=== PATIENT | female | born 1980 | race Caucasian/White ===

== ENCOUNTER 2017-09-26 21:14 | Observation (INO) ==
[2017-09-26] MEDS ORDERED: Ipratropium/Albuterol Neb 3 ML IH ONE (21:39)
--- NOTE | 2017-09-26 21:42 | Emergency Department Note ---
Disposition Clinical Impression: Acute exacerbation of chronic obstructive airways disease Disposition: Admitted As Inpatient Condition: Good Time of Disposition: 23:00 ([facility]) SOB HPI - General Chief Complaint: ED Shortness of Breath/Dyspnea Stated Complaint: short of breath Time Seen by Provider: 09/26/17 21:20 Source: patient Mode of arrival: ambulatory Limitations: no limitations Nursing Notes Reviewed: Yes Vital Signs Reviewed: Yes - History of Present Illness Patient is very been on steroids and antibiotics and she is on her second round of antibiotics here just within the past month is having increasing shortness of breath with activity wheezing and having no relief she does have a history of pulmonary emboli but this is not been worked up recently she denies any chest pain or chest pressure she is having shortness of breath with activity short of breath with rest she is not getting much relief from the use of her aerosol machine at home she denies blurred vision double vision loss vision and she is currently on 20 mg of prednisone a day after she had received a shot of Solu-Medrol 125 mg with no relief Pt Subjective Complaint: shortness of breath, "asthma attack" 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 Context: recent illness Severity: severe Consistency/Duration: constant Improves with: oxygen, bronchodilators Worsens with: nothing Known history of: COPD, asthma, PE Associated symptoms: Reports: cough, wheezing, sputum production Treatment prior to arrival: bronchodilator Cough present: No Sputum production: No - Related Data Home Medications Medication Instructions Recorded Confirmed Albuterol Sulfate [Albuterol 8.5 gm IH Q4H PRN 05/17/17 09/26/17 Inhaler] Budesonide/Formoterol 160/4.5 2 puff IH BIDR 05/17/17 09/26/17 [Symbicort 160/4.5] Cetirizine HCl [Zyrtec] 10 mg PO DAILY 05/17/17 09/26/17 Buprenorphine HCl/Naloxone HCl 1 each SL DAILY 09/26/17 09/26/17 [Suboxone 8 mg-2 mg Sl Film] Ciprofloxacin HCl [Cipro] 500 mg PO BID 09/26/17 09/26/17 Clindamycin [Cleocin] 150 mg PO Q6HR 09/26/17 09/26/17 Gabapentin [Neurontin] 800 mg PO BID 09/26/17 09/26/17 Tiotropium [Spiriva] 18 mcg IH DAILY 09/26/17 09/26/17 Previous Rx's Medication Instructions Recorded EPINEPHrine [Epipen] 0.3 mg IM ONCE PRN #1 kit 03/09/17 Allergies Allergy/AdvReac Type Severity Reaction Status Date / Time tramadol [From Ultram] AdvReac Seizure Verified 09/27/17 07:31 bee sting Allergy Swelling Uncoded 05/29/17 16:23 of Lip/Tongue/Throat All systems ED: reviewed and negative except as stated. Review of Systems: As Per HPI Constitutional: Denies: fever, chills Eyes: Denies: eye pain ENT ED: Denies: ear pain Cardiovascular: Reports: chest pain Respiratory: Reports: cough, dyspnea, wheezes Gastrointestinal: Denies: abdominal pain Genitourinary: Denies: urgency Musculoskeletal: Denies: back pain Integumentary: Denies: rash Neurological: Denies: headache Psychiatric: Denies: anxiety Endocrine: Denies: fatigue Hematological/Lymphatic: Denies: easy bleeding Allergic/Immunologic: Denies: facial swelling Past Medical History - Past Medical History Attestation: Yes The following information was validated with the patient. 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 history: Reports: bilateral tubal ligation - Social History Smoking Status: Current every day smoker Smokeless Tobacco Status: Yes Alcohol use: Reports: occasionally Drug use: Reports: none Physical Exam - General Limitations: no limitations General appearance: alert, in no apparent distress, anxious - Head Head exam: atraumatic, normocephalic, normal inspection - Eye Eye exam: Present: normal appearance, PERRL, EOMI - ENT ENT exam: normal exam, normal oropharynx, mucous membranes moist - Neck Neck exam: Present: normal inspection, full ROM, trachea midline - Chest Chest inspection: Present: normal inspection, symmetric chest wall rise - Respiratory Respiratory exam: Present: wheezes, accessory muscle use, prolonged expiratory phase - Cardiovascular Cardiovascular exam: Present: regular rate, normal rhythm, normal heart sounds - Abdominal Exam Abdominal exam: Present: soft, Non-Tender, normal bowel sounds - Extremities Exam Extremities exam: Present: normal inspection, full ROM, normal capillary refill. Absent: tenderness, pedal edema, joint swelling, calf tenderness - Expanded Lower Extremity Exam Neurovascular/Tendon exam: Present: normal capillary refill, normal fine/light touch Gait: observed and normal - Back Exam Back exam: Present: normal inspection, full ROM. Absent: muscle spasm - Neurological Exam Neurological exam: Present: alert, oriented X3, CN II-XII intact - Psychiatric Psychiatric exam: Present: normal affect, normal mood - Skin Skin exam: Present: warm, dry, intact, normal color Course Course Narrative: Patient seen and examined breathing treatments with little relief patient was given Solu-Medrol antibiotics after PE study she was admitted for observation transferred to [facility] Vital Signs Temperature 97.4 F L 09/26/17 21:18 Pulse Rate 91 09/26/17 21:18 Respiratory Rate 18 09/26/17 21:18 Blood Pressure 137/88 09/26/17 21:18 O2 Sat by Pulse Oximetry 96 09/26/17 21:18 Temperature 98.4 F 09/27/17 06:46 Pulse Rate 90 09/27/17 06:46 Respiratory Rate 16 09/27/17 06:46 Blood Pressure 117/72 09/27/17 06:46 O2 Sat by Pulse Oximetry 93 09/27/17 06:46 Oxygen Delivery Oxygen Delivery Room Air Shortness of Breath/Dyspnea - Differential Diagnosis Likely: acute exacerbation of chronic obstructive airways disease - Medical Records Medical records reviewed: Yes I reviewed the patient's medical records. - Lab Data Lab results reviewed: Yes I reviewed the patient's lab results. Result diagrams: 09/27/17 04:38 09/27/17 04:38 Lab Results 09/26/17 09/26/17 09/26/17 Range/Units 21:53 21:53 21:53 WBC 4.4 (4.3-11.1) K/mcL RBC 4.07 (3.82-4.97) M/mcL Hgb 14.0 (11.5-15.4) g/dL Hct 40.0 (35.3-44.9) % MCV 98.3 (83.0-100.0) fL MCH 34.4 H (28.0-33.3) pg MCHC 35.0 (31.6-35.5) g/dL RDW 13.6 (11.5-14.5) % Plt Count 191 (140-400) K/mcL MPV 10.5 (9.4-12.4) fL Immature Gran % 0.2 (0-4) % Seg Neutrophils % 36.8 % Lymphocytes % 46.9 % Monocytes % 9.0 % Eosinophils % 5.3 % Basophils % 1.8 % Neutrophils # 1.6 (1.6-8.9) K/mcL Lymphocytes # 2.0 (0.6-4.6) K/mcL Monocytes # 0.4 (0.0-1.3) K/mcL Eosinophils # 0.2 (0.0-0.6) K/mcL Basophils # 0.1 (0.0-0.2) K/mcL PT 11.1 (9.4-12.1) Seconds INR 1.0 APTT 32.2 (26.0-36.0) Seconds D-Dimer 956 H (0-500) ng/mLFEU Sodium 140 (136-145) mEq/L Potassium 3.8 (3.5-4.5) mEq/L Chloride 103 (98-109) mEq/L Carbon Dioxide 21 (19-29) mEq/L BUN 3 L (7-20) mg/dL Creatinine 0.62 (0.57-1.11) mg/dL Est GFR ( Amer) > 60 (> 60) Est GFR (Non-Af Amer) > 60 (> 60) BUN/Creatinine Ratio 5 L (6-26) Glucose 85 (70-99) mg/dL Calculated Osmolality 286 (280-300) Calcium 9.3 (8.6-10.8) mg/dL - Radiology Data Radiology results reviewed: Yes I reviewed the patient's radiology results. ITS Impressions Chest CTA 09/26/17 22:31 IMPRESSION: 1. No evidence of pulmonary embolism or acute pulmonary abnormality. 2. Emphysema. D/ / Weston Carney MD / Weston Carney MD Interpreting Provider: Weston Carney MD Critical Care Time Critical Care Time: No
[2017-09-26 22:05] LABS: Basophils # 0.1 K/mcL (0.0-0.2); Basophils % 1.8 %; Eosinophils # 0.2 K/mcL (0.0-0.6); Eosinophils % 5.3 %; Immature Granulocytes % 0.2 % (0-4); Lymphocytes % 46.9 %; Mean Corpuscular Hemoglobin 34.4 pg (28.0-33.3); Mean Corpuscular Volume 98.3 fL (83.0-100.0); Mean Platelet Volume 10.5 fL (9.4-12.4); Monocytes # 0.4 K/mcL (0.0-1.3); Neutrophils # 1.6 K/mcL (1.6-8.9); Platelet Count 191 K/mcL (140-400); Red Blood Count 4.07 M/mcL (3.82-4.97); Red Cell Distribution Width 13.6 % (11.5-14.5); Segmented Neutrophils % 36.8 %
[2017-09-26 22:13] LABS: Prothrombin Time 11.1 Seconds (9.4-12.1)
[2017-09-26 22:15] LABS: Activated Partial Thrombo Time 32.2 Seconds (26.0-36.0)
[2017-09-26 22:18] LABS: BUN/Creatinine Ratio 5 (6-26); Blood Urea Nitrogen 3 mg/dL (7-20); Calcium 9.3 mg/dL (8.6-10.8); Carbon Dioxide 21 mEq/L (19-29); Chloride 103 mEq/L (98-109); Glucose 85 mg/dL (70-99); Osmolality,Calculated 286 (280-300); Potassium 3.8 mEq/L (3.5-4.5); Sodium 140 mEq/L (136-145); eGFR For African Americans > 60 (> 60); eGFR For Non-African Americans > 60 (> 60)
[2017-09-27] MEDS ORDERED: methylPREDNISolone 125 MG/2 ML VIAL IVP ONE (00:39)
[2017-09-27] MEDS ORDERED: Levofloxacin 750 MG/150 ML 750 MG/150 ML BAG IVPB ONE (00:39)
[2017-09-27] MEDS ORDERED: *HR* EPINEPHrine 0.3 MG/0.3 ML (PEN) IM PRN (01:23)
[2017-09-27] MEDS ORDERED: 0.9 % Sodium Chloride 1,000 ML IVC SCH (01:23)
[2017-09-27] MEDS ORDERED: Ondansetron 4 MG/2 ML VIAL IVP PRN (01:23)
[2017-09-27] MEDS ORDERED: Albuterol 2.5 MG/3 ML NEBULIZER IH PRN (01:23)
[2017-09-27] MEDS ORDERED: Naloxone 0.4 MG/ML INJ IVP PRN (01:23)
[2017-09-27] MEDS: Nicotine 14 MG PATCH.TD24 TD SCH ×2 (02:35→10:14)
[2017-09-27] MEDS: Ipratropium/Albuterol Neb 3 ML IH SCH ×2 (04:40→10:07)
[2017-09-27 05:24] LABS: Basophils % 1.4 %; Eosinophils % 0.7 %; Hematocrit 38.7 % (35.3-44.9); Hemoglobin 13.2 g/dL (11.5-15.4); Immature Granulocytes % 0.4 % (0-4); Lymphocytes # 0.2 K/mcL (0.6-4.6); Lymphocytes % 8.1 %; Mean Corpuscular HGB Conc 34.1 g/dL (31.6-35.5); Mean Corpuscular Hemoglobin 33.8 pg (28.0-33.3); Mean Corpuscular Volume 99.2 fL (83.0-100.0); Mean Platelet Volume 10.9 fL (9.4-12.4); Monocytes # 0.1 K/mcL (0.0-1.3); Monocytes % 2.8 %; Platelet Count 158 K/mcL (140-400); Red Cell Distribution Width 13.8 % (11.5-14.5); Segmented Neutrophils % 86.6 %
[2017-09-27 05:32] LABS: Neutrophils # 2.4 K/mcL (1.6-8.9)
[2017-09-27 05:41] LABS: BUN/Creatinine Ratio 6 (6-26); Calcium 9.2 mg/dL (8.6-10.8); Carbon Dioxide 21 mEq/L (19-29); Chloride 105 mEq/L (98-109); Glucose 90 mg/dL (70-99); Osmolality,Calculated 290 (280-300); Potassium 4.4 mEq/L (3.5-4.5); Sodium 142 mEq/L (136-145); eGFR For African Americans > 60 (> 60); eGFR For Non-African Americans > 60 (> 60)
[2017-09-27 05:43] LABS: Blood Urea Nitrogen 4 mg/dL (7-20)
[2017-09-27] MEDS ORDERED: methylPREDNISolone 125 MG/2 ML VIAL IVP SCH (06:00)
[2017-09-27 06:47] VITALS: BP 117/72
[2017-09-27] MEDS ORDERED: Nicotine 14 MG PATCH.TD24 TD SCH (09:00)
[2017-09-27] MEDS ORDERED: (Suboxone 8 Mg-2 Mg SL) SL SCH (09:00)
[2017-09-27] MEDS ORDERED: Gabapentin 400 MG CAPSULE PO SCH (09:00)
[2017-09-27] MEDS ORDERED: Loratadine 10 MG TABLET PO SCH (09:00)
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
[2017-09-27] MEDS ORDERED: Budesonide/Formoterol 160/4.5 MDI IH SCH (10:00)
[2017-09-27] MEDS ORDERED: Tiotropium 18 MCG inhalation IH SCH (10:00)
--- NOTE | 2017-09-27 10:08 | Discharge Summary ---
Date of Encounter: 09/27/17 Time of Encounter: 09:30 - Discharge Diagnosis (1) Acute exacerbation of chronic obstructive airways disease Priority: Primary Status: Acute - Discharge Medications Home Medications: EPINEPHrine [Epipen] 0.3 mg IM ONCE PRN #1 kit 03/09/17 [Rx] Albuterol Sulfate [Albuterol Inhaler] 8.5 gm IH Q4H PRN 05/17/17 [History] Budesonide/Formoterol 160/4.5 [Symbicort 160/4.5] 2 puff IH BIDR 05/17/17 [ History] Cetirizine HCl [Zyrtec] 10 mg PO DAILY 05/17/17 [History] Buprenorphine HCl/Naloxone HCl [Suboxone 8 mg-2 mg Sl Film] 1 each SL DAILY [History] Gabapentin [Neurontin] 800 mg PO BID 09/26/17 [History] Tiotropium [Spiriva] 18 mcg IH DAILY 09/26/17 [History] Allergies/Adverse Reactions: 3 Allergy/AdvReac Type Severity Reaction Status Date / Time tramadol [From Ultram] AdvReac Seizure Verified 09/27/17 07:31 bee sting Allergy Swelling Uncoded 05/29/17 16:23 of Lip/Tongue/Throat Date of admission: 09/27/17 00:51 Primary care physician: Rubio Guthrie Consults: 09/27/17 02:03 Consult to Nutrition [CONS] Routine Comment: Consulting Provider: NUTRITION Reason for Dietary Consult: MST Score - Patient Status Disposition: Home, Self-Care Condition: Good Functional capacity at discharge: independent ambulation Overall status at discharge: patient is progressing back to baseline - Discharge Instructions Follow Up With: Rubio Guthrie DO [Primary Care Provider] - 1 week - Diet and Activity Activity: resume usual activities as tolerated Diet: advance to your usual diet Hospital course: Ms. Richmond is a 37 year old female who came to emergency room complaining of increased cough and dyspnea over the preceding few days. She states her symptoms began approximately 4 months ago. She saw her PCP who gave her antibiotics. There was no significant improvement so at a return visit approximately 1 month later she received additional antibiotics and steroids. There was still minimal improvement and she received 2 more courses of antibiotics and steroids since then. She was evaluated in emergency room and felt to have exacerbation of COPD. She was admitted to [facility] for ongoing care needs. Initial orders were written by the emergency room physician. I saw her on September 27 and performed a history physical and discharge. She was started on IV Levaquin and Solu-Medrol in emergency room. I reviewed her chest CTA report which showed no evidence of infiltrate. I do not feel she would benefit from additional antibiotic therapy. I told her she should continue her home medication regimen and completely discontinue smoking. She will stop previously prescribed antibiotics to avoid superinfection and resistant organisms. Room air oximetry will be checked on a 6 minute walk prior to discharge. She will follow with her PCP within one week. - Time Spent with Patient Total time spent providing and/or coordinating discharge services: - Constitutional Vitals: Temp Pulse Resp BP Pulse Ox 98.4 F 90 16 117/72 93 09/27/17 06:46 09/27/17 06:46 09/27/17 06:46 09/27/17 06:46 09/27/17 06:46
== END 2017-09-27 10:50 | disposition home or self-care (01) ==
LOC: EMEROOPIK 21:14 → INPPIK 21:14
PROVIDERS: ADMIT Internal Medicine; ATTEND Internal Medicine